=== PATIENT | female | born 1970 | race Caucasian/White ===

== ENCOUNTER → 2023-06-26 | Outpatient (CLI) | payer BC ==
[~2023-06-26] MED LIST: ALPR0.5T3; B-12100010 PO; CHOL125C5 PO; MELA10TA2 PO; MELO15TA28; PRED10TA2; TUME1CAP PO; VITA100T59 PO
== END ==
LOC: M RAD 16:09
PROVIDERS: ATTEND Internal Medicine Hematology & Oncology
DX: C50.911 Malignant neoplasm of unspecified site of right female breast (principal); M25.552 Pain in left hip

== ENCOUNTER → 2023-08-01 | Outpatient (CLI) | payer BC | LOC: M RAD 10:06 | PROVIDERS: ATTEND Internal Medicine Hematology & Oncology | DX: M25.552 Pain in left hip (principal); C50.919 Malignant neoplasm of unspecified site of unspecified female breast | CPT/HCPCS: 78306; A9503 ==

== ENCOUNTER → 2023-11-05 | Outpatient (CLI) | payer BC ==
[~2023-11-05] MED LIST changes: +DICL100G10 TOP
== END ==
LOC: M RAD 16:41
PROVIDERS: ATTEND Internal Medicine Hematology & Oncology
DX: M79.671 Pain in right foot (principal); M79.672 Pain in left foot; M77.31 Calcaneal spur, right foot; M77.32 Calcaneal spur, left foot; C50.919 Malignant neoplasm of unspecified site of unspecified female breast

== ENCOUNTER → 2024-12-01 | Outpatient (CLI) | payer BC ==
[~2024-12-01] MED LIST changes: +CLON-412; +MELO7.5T35; +POLY2.5S; +SLOW160T12 PO
== END ==
LOC: M RAD 09:46
PROVIDERS: ATTEND Internal Medicine Hematology & Oncology
DX: E55.9 Vitamin D deficiency, unspecified (principal); N64.4 Mastodynia; N64.89 Other specified disorders of breast; C50.211 Malignant neoplasm of upper-inner quadrant of right female breast; R05.3 Chronic cough; B35.1 Tinea unguium; M25.551 Pain in right hip; M79.10 Myalgia, unspecified site; E86.0 Dehydration; R74.01 Elevation of levels of liver transaminase levels; D70.1 Agranulocytosis secondary to cancer chemotherapy; G56.00 Carpal tunnel syndrome, unspecified upper limb; I10 Essential (primary) hypertension; L40.9 Psoriasis, unspecified; Z86.69 Personal history of other diseases of the nervous system and sense organs
CPT/HCPCS: 78306; A9503